=== PATIENT | male | born 1995 | race Asian ===

== ENCOUNTER 2019-03-17 09:25 | Day surgery (SDC) | payer OTHER ==
[2019-03-17 09:40] VITALS: BMI 30.2
--- NOTE | 2019-03-17 10:09 | PDOC ---
History of Present Illness - General Chief Complaint: Abscess Boil Stated Complaint: SENT BY PCP FOR GI ISSUES Time Seen by Provider: 03/17/19 09:55 - History of Present Illness Initial Comments: 03/17/19 11:24 23 year old man with no past medical hsitory who prsents with 3-4 days of rectal mass and pain in anus. He denies fever, or difficulty with defecation. No nausea, vomiting, diarrhea, constipation . ROS GENERAL/CONSTITUTIONAL: No fever or chills. No weakness. HEAD, EYES, EARS, NOSE AND THROAT: No change in vision. No ear pain or discharge. No sore throat. CARDIOVASCULAR: No chest pain or shortness of breath RESPIRATORY: No cough, wheezing, or hemoptysis. GASTROINTESTINAL: No nausea, vomiting, diarrhea or constipation. GENITOURINARY: No dysuria, frequency, or change in urination. MUSCULOSKELETAL: No joint or muscle swelling or pain. No neck or back pain. SKIN: No rash NEUROLOGIC: No headache, vertigo, loss of consciousness, or change in strength/ sensation. PE GENERAL: Awake, alert, and fully oriented, in no acute distress HEAD: No signs of trauma, normocephalic, atraumatic EYES:, EOMI, sclera anicteric, conjunctiva clear ENT:, oropharynx clear without exudates. Moist mucosa NECK: Normal ROM, supple, LUNGS: No distress, speaks full sentences, clear to auscultation bilaterally HEART: Regular rate and rhythm, normal S1 and S2, no murmurs, rubs or gallops, peripheral pulses normal and equal bilaterally. ABDOMEN: Soft, nontender, normoactive bowel sounds. No guarding, no rebound. No masses EXTREMITIES : Normal inspection, Normal range of motion, no edema. No clubbing or cyanosis. NEUROLOGICAL: Cranial nerves II through XII grossly intact. Normal speech, normal gait, no focal sensorimotor deficits SKIN: Warm, Dry, normal turgor, no rashes or lesions noted RECTAL: 2cm diameter indurated warm and erythematous mass at 3'o clock position. extension of the mass 2cm into the rectum with fluctuance inside the rectum MDM DDX including but not limited to: perisnsl abscess ED Course: Dr. Leal at bedside. Will take patient to OR will send preop labs Brigette Lewis PGY2 Emergency Medicine Past History - Past Medical History Allergies/Adverse Reactions: Allergies Allergy/AdvReac Type Severity Reaction Status Date / Time No Known Allergies Allergy Verified 03/17/19 09:39 Home Medications: Ambulatory Orders Amox-Tr/K Cl [Augmentin - 875Mg Tablet] 1 tab PO BID #10 tablet 03/17/19 Docusate Sodium [Colace -] 100 mg PO BID #60 capsule 03/17/19 Oxycodone HCl/Acetaminophen [Percocet 5-325 mg Tablet] 1 - 2 tab PO Q6H PRN #22 tab MDD 8 03/17/19 COPD: No - Psycho Social/Smoking Cessation Hx Smoking History: Never smoked Have you smoked in the past 12 months: No Information on smoking cessation initiated: No Hx Alcohol Use: No Drug/Substance Use Hx: No *Physical Exam - Vital Signs Last Vital Signs Temp Pulse Resp BP Pulse Ox 99.2 F 87 18 146/90 98 03/17/19 09:38 03/17/19 09:38 03/17/19 09:38 03/17/19 09:38 03/17/19 09:38 ED Treatment Course - LABORATORY CBC & Chemistry Diagram: 03/17/19 10:54 03/17/19 10:54 *DC/Admit/Observation/Transfer Diagnosis at time of Disposition: Perianal abscess - Discharge Dispostion Disposition: HOME Condition at time of disposition: Improved Decision to Admit order: Yes - Prescriptions - Referrals - Patient Instructions - Post Discharge Activity Discharge - Discharge Information Problems reviewed: Yes Clinical Impression/Diagnosis: Perianal abscess Condition: Improved Disposition: HOME - Additional Discharge Information
--- NOTE | 2019-03-17 10:41 | PDOC ---
Attending Attestation - Resident Resident Name: Brigette Lewis - ED Attending Attestation I have performed the following: I have examined & evaluated the patient, The case was reviewed & discussed with the resident, I agree w/resident's findings & plan, Exceptions are as noted - HPI HPI: 03/17/19 10:38 23 M with no PMH presents to ED with rectal pain. Pt first noticed it about 3 days ago. He notes that he feels a constant pressure and pain in his rectum that is exacerbated by defecation. Denies any drainage or bleeding from the area. Denies F/C. Has never had this problem before. - Physicial Exam PE: 03/17/19 10:38 "GENERAL: Awake, alert, and fully oriented, in no acute distress. HEAD: No signs of trauma EYES: PERRLA, EOMI, sclera anicteric, conjunctiva clear ENT: Auricles normal inspection, hearing grossly normal, nares patent, oropharynx clear without exudates. Moist mucosa NECK: Nontender, no stepoffs, Normal ROM, supple, no lymphadenopathy, JVD, or masses LUNGS: Breath sounds equal, clear to auscultation bilaterally. No wheezes, and no crackles HEART: Regular rate and rhythm, normal S1 and S2, no murmurs, rubs or gallops ABDOMEN: Soft, nontender, normoactive bowel sounds. No guarding, no rebound. No masses EXTREMITIES: Normal range of motion, no edema. No clubbing or cyanosis. No cords, erythema, or tenderness NEUROLOGICAL: Cranial nerves II through XII intact. 5/5 strength and sensation in all extremities, Normal speech, normal gait, normal cerebellar function SKIN: Warm, Dry, normal turgor, no rashes or lesions noted. RECTAL: + fluctuant mass with erythema at anal verge extending into rectum, no hemorrhoids, no drainage - Medical Decision Making 03/17/19 10:39 23 M with perianal abscess. - Labs - Dr. Leal aware of pt, to evaluate in ED - Tylenol Pt taken to OR for drainage by Dr. Leal
[2019-03-17] MEDS ORDERED: ACETAMINOPHEN 1000 MG/100 ML VIAL (NON FORMULARY) IVPB ONE (10:43)
[2019-03-17 11:08] LABS: BASO % 0.4 % (0-2.0); EOS % 0.1 % (0-4.5); HEMATOCRIT 44.7 % (35.4-49); HEMOGLOBIN 15.5 GM/dL (11.7-16.9); LYMPH % 12.1 % (8-40); MCH 31.6 pg (25.7-33.7); MCHC 34.6 g/dl (32.0-35.9); MEAN CELL VOLUME 91.3 fl (80-96); MEAN PLT VOLUME 7.6 fl (7.5-11.1); MONO % 7.8 % (3.8-10.2); NEUT % 79.6 % (42.8-82.8); PLATELET COUNT 261 K/MM3 (134-434); RDW 12.8 % (11.9-15.9); WHITE BLOOD COUNT 10.8 K/mm3 (4.0-10.0)
[2019-03-17] MEDS ORDERED: ACETAMINOPHEN INJECTION 100 ML IVPB ONE (11:18)
[2019-03-17 11:24] LABS: INR 1.2 (0.83-1.09); PROTHROMBIN TIME (PATIENT) 14.2 SEC (9.7-13.0)
[2019-03-17 11:31] LABS: ALBUMIN 4.2 g/dl (3.4-5.0); BILIRUBIN,TOTAL 0.6 mg/dL (0.2-1); BLOOD UREA NITROGEN 13.8 mg/dL (7-18); CALCIUM 9.8 mg/dL (8.5-10.1); CREATININE 1.1 mg/dL (0.55-1.3); POTASSIUM 4.3 mmol/L (3.5-5.1); TOT PROT 8.2 g/dl (6.4-8.2)
[2019-03-17] MEDS ORDERED: CEFOXITIN SODIUM 1 GM IVPB ONE (11:52)
--- NOTE | 2019-03-17 12:02 | HP ---
Admitting History and Physical - Primary Care Physician PCP: Navid Cooper - Admission Chief Complaint: anorectal pain and swelling History of Present Illness: 23yo healthy M began experiencing anorectal pain Sunday, but didn't think much of it at first. Over the next few days, the pain got worse, and he has not moved his bowels since Sunday. The area, at the right side of the anus, also began swelling. He has never had this problem before. He came to the ER, and surgery was asked to assess for perianal abscess. He has T 99.2, wbc is 10.8. Last po was black coffee at 8am. History Source: Patient Limitations to Obtaining History: No Limitations - Past Medical History Additional Past Medical History: none - Past Surgical History Past Surgical History: Yes: None - Smoking History Smoking history: Never smoked Have you smoked in the past 12 months: No - Alcohol/Substance Use Hx Alcohol Use: Yes (occasional) History of Substance Use: reports: None - Social History Usual Living Arrangement: Yes: With Parent ADL: Independent Occupation: medical student Home Medications - Allergies Allergies/Adverse Reactions: Allergies Allergy/AdvReac Type Severity Reaction Status Date / Time No Known Allergies Allergy Verified 03/17/19 09:39 - Home Medications Home Medications: Ambulatory Orders NK [No Known Home Medication] 03/17/19 Family Disease History - Family Disease History Family History: Unremarkable (noncontributory) Review of Systems - Review of Systems Constitutional: denies: Chills, Fever Eyes: denies: Blurred Vision, Recent Change in Vision HENT: denies: Difficult Swallowing, Throat Pain Neck: denies: Swollen Glands, Tenderness Cardiovascular: denies: Chest Pain, Palpitations Respiratory: denies: Cough, SOB Gastrointestinal: reports: Constipation. denies: Abdominal Pain, Diarrhea, Nausea, Vomiting Genitourinary: denies: Burning, Dysuria Musculoskeletal: denies: Back Pain, Joint Pain, Muscle Pain Integumentary: reports: Lump (at right edge of anus). denies: Change in Color, Rash Neurological: denies: Dizziness, Headache Physical Examination Vital Signs: Vital Signs Temperature 99.2 F 03/17/19 09:38 Pulse Rate 87 03/17/19 09:38 Respiratory Rate 18 03/17/19 09:38 Blood Pressure 146/90 03/17/19 09:38 O2 Sat by Pulse Oximetry (%) 98 03/17/19 09:38 Constitutional: Yes: Well Nourished, No Distress, Calm Eyes: Yes: Conjunctiva Clear, EOM Intact HENT: Yes: Atraumatic, Normocephalic Neck: Yes: Supple, Trachea Midline Cardiovascular: Yes: Regular Rate and Rhythm Respiratory: Yes: Regular, CTA Bilaterally Gastrointestinal: Yes: Soft, Hypoactive Bowel Sounds. No: Distention, Tenderness ...Rectal Exam: Yes: Erythema, Inflammation, Sphincter Tone Normal, Other (at right anal verge is 2cm soft, fluctuant, swollen area which extends into anal canal and is tender). No: Hemorrhoids/External Renal/: No: CVA Tenderness - Left, CVA Tenderness - Right Musculoskeletal: No: Joint Stiffness, Joint Swelling Extremities: No: Cool, Cyanosis Edema: No Peripheral Pulses WNL: Yes Integumentary: No: Jaundice, Rash Wound/Incision: Yes: Open to air, Reddened. No: Draining Neurological: Yes: Alert, Oriented Psychiatric: Yes: Alert, Oriented Labs: CBC, BMP 03/17/19 10:54 03/17/19 10:54 Problem List - Problems (1) Perianal abscess Assessment/Plan: right side of anal verge, extending into anal canal will give IV fluids and antibiotic Discussed with patient risks, benefits and alternatives of incision and drainage of right perianal abscess, including but not limited to bleeding, infection, recurrence, fistula development; alternatives include antibiotics with no surgery - risks of this include worsening of infection, sepsis, need for more extensive procedure. Patient desires to proceed with operation - will take to OR for above. Informed consent signed for same. Pt to go home postop with abx and pain med Rx's. Will need stool softeners and laxatives for prn use as well, OTC. Code(s): K61.0 - ANAL ABSCESS (2) Anorectal pain Code(s): K62.89 - OTHER SPECIFIED DISEASES OF ANUS AND RECTUM (3) Constipation, acute Code(s): K59.00 - CONSTIPATION, UNSPECIFIED
[2019-03-17] MEDS ORDERED: MIDAZOLAM HCL 2 MG/2 ML SINGLE DOSE VIAL ONE ×2 (12:27→12:49)
[2019-03-17] MEDS ORDERED: cefOXitin SODIUM 1 GM VIAL (RESTRICTED TO ID) IVPB ONE (12:40)
--- NOTE | 2019-03-17 14:04 | OP ---
Operative Note - Note: Operative Date: 03/17/19 Pre-Operative Diagnosis: right perianal abscess Operation: incision and drainage of right perianal abscess Findings: no internal fistulous opening identified; ~10ml pus evacuated and cultured; cavity extends up along rectal wall ~4cm deep ; packed with 4x4 gauze Post-Operative Diagnosis: Same as Pre-op Surgeon: Maicol Leal Anesthesiologist/HYDROELECTRIC OPERATOR: Kar Gregg Anesthesia: Spinal Specimens Removed: culture of pus to micro Estimated Blood Loss (mls): 5 Fluid Volume Replaced (mls): 300 (crystalloid) Operative Report Dictated: Yes
[2019-03-17 14:11] VITALS: BP 102/70; PULSE 72; TEMP 98.8
--- NOTE | 2019-04-08 17:44 | OP ---
DATE OF OPERATION: 03/17/2019 PREOPERATIVE DIAGNOSIS: Right perianal abscess. POSTOPERATIVE DIAGNOSIS: Right perianal abscess. PROCEDURE: Incision and drainage of right perianal abscess. SURGEON: Maicol Leal MD ANESTHESIA: Spinal. ESTIMATED BLOOD LOSS: 5 mL. FLUIDS: 300 mL crystalloid. SPECIMEN: Culture of the pus to Microbiology on a swab. FINDINGS: No internal fistulous opening was identified. Approximately 10 mL of pus evacuated and cultured. Cavity extended up 4 cm along the rectal wall and was packed with gauze. DISPOSITION: Stable and awake to PACU. INDICATION FOR PROCEDURE: Patient is a healthy 23-year-old male who began experiencing anorectal pain several days prior and had not moved his bowels in a couple of days. The area at the right side of the anus also began swelling, and he came to the emergency room. where he had a temperature of 99.2 and a white count of 10.8. He was diagnosed on physical exam with a right perianal abscess. Risks, benefits, and alternatives of incision and drainage of right perianal abscess were discussed with the patient including, but not limited to, bleeding, infection, recurrence, and fistula development. Alternatives included antibiotics with no surgery with risks of worsening of infection, sepsis, and need for more extensive procedure. The patient agreed to have the procedure and signed informed consent for the same and is now brought to the OR for it. OPERATIVE TECHNIQUE: The patient was brought to the operating room, where he was provided with spinal anesthetic by the anesthesiologist, after which he was laid supine on the operating room table, and then placed into lithotomy position with his feet up in Yellofin stirrups. The table was raised, and he was also placed in Trendelenburg position to expose the perianal area, which was prepped and draped with Betadine in sterile fashion. Examination under anesthesia was then performed with an anal speculum, following a digital rectal exam, which did not reveal any gross blood or pus. Examination of the internal anal canal revealed no evidence of a fistulous opening or abnormalities. The pointing site of the abscess was at the right perianal area, where there was fluctuance and erythema as well as swelling. A scalpel was used to incise the most pointing area of the fluctuance with immediate evacuation of pus. This was cultured on a swab and sent to Microbiology. A very thin sliver of skin was excised at the site with the scalpel, to ensure the opening would not close prematurely, and the pus was suctioned with the [employer] suction device. The cavity was probed manually with a fingertip to ensure loculations were broken up; it was followed up to identify the extent of the cavity. It tracked up toward the rectal wall approximately 4 cm deep but not deep enough to enter the ischiorectal fossa. It did track somewhat through through the sphincter muscle. Once all of the pus had been completely evacuated, the area was irrigated with saline solution and allowed to drain. Hemostasis was achieved with electrocautery at the wound edges, and the tract was packed with gauze several times with pressure held over some time to facilitate hemostasis. Once the bleeding stopped, a single 4 x 4 gauze was used to pack the cavity, and a dressing of folded gauze and ABD pad was placed over the area and secured in place with tape. Betadine was cleansed off the patient prior to securing the dressing. Counts were correct at the end of the procedure. The patient was then taken out of Trendelenburg in lithotomy position, returned to supine on the operating table, moved back to a stretcher, and taken to the recovery room in stable condition having tolerated the procedure well. Rosio [id number] MTDD
== END 2019-03-17 15:54 | disposition home or self-care (01) ==
LOC: JER 09:25 → JASU-SURG 11:27 → JSAMEDAYSX 12:04 → J6S 12:48 → JASU-SURG 15:54
PROVIDERS: ATTEND Surgery
PROC: 0D9Q0ZX Drainage of Anus, Open Approach, Diagnostic (ICD-10-PCS; principal; 2019-03-17 12:00)
DX: K61.0 Anal abscess (principal)
CPT/HCPCS: 36415; 80053; 85025; 85610; 85730; 86850; 86900; 86901; 87070; 87075; 87186; 87205; 94760; 99282-25; J0131